=== PATIENT | female | born 1935 | race Caucasian/White ===

== ENCOUNTER 2016-07-26 20:50 | Inpatient (IN) ==
--- NOTE | 2016-07-26 22:58 | PROVIDER DOCUMENTATION ---
HPI-Abdominal Pain/GI Problem - General Chief Complaint: Return/Recheck Stated Complaint: RT SIDE PAIN Time Seen by Provider: 07/26/16 22:45 Source: patient, family Allergies/Adverse Reactions: Patient Allergies Allergy/AdvReac Type Severity Reaction Status Date / Time Penicillins Allergy Intermediate RASH Verified 01/06/16 16:16 aspirin AdvReac Severe DIARRHEA Verified 01/06/16 16:16 Home Medications: Home Medication List Medication Instructions Recorded Confirmed Last Taken Type Metoprolol Succinate E.r. [Toprol 25 mg PO DAILY 05/28/13 07/26/16 07/26/16 07: 00 History Xl] 25 MG Ticagrelor [Brilinta] 90 mg PO BID 07/26/15 07/26/16 07/26/16 07:00 History 90 MG Hydrocodone/APAP 7.5 mg/325 mg 1 each PO Q4H PRN PRN #20 tablet 08/13/1507/26/16 07:00 Rx [[place]-7.5] 1 EACH Acyclovir 800 mg PO DAILY 07/26/16 07/26/16 07/26/16 07:00 History 800 MG Aspirin [Aspirin EC] 81 mg PO DAILY 07/26/16 07/26/16 07/26/16 07:00 History 81 MG Ciprofloxacin HCl [Cipro] 500 mg PO BID #14 tablet 07/26/16 Unknown Rx Cyanocobalamin/Cobamamide [B12 1 each SL DAILY 07/26/16 07/26/16 07/26/16 07:00 History 5,000 Mcg Microlozenge] 1 EACH Eltrombopag Olamine [Promacta] 50 mg PO DAILY 07/26/16 07/26/16 07/26/16 07:00 History 50 MG Iron 18 mg PO DAILY 07/26/16 07/26/16 07/26/16 07:00 History 18 MG Losartan [Cozaar] 50 mg PO DAILY 07/26/16 07/26/16 07/26/16 07:00 History 50 MG Metoclopramide [Reglan] 5 mg PO TID AC 07/26/16 07/26/16 07/26/16 07:00 History 5 MG Metronidazole 500 mg PO TID #21 tablet 07/26/16 Unknown Rx Omeprazole 40 mg PO DAILY 0507/26/16 07/26/16 07:00 History 40 MG Promethazine [Phenergan] 25 mg PO Q6H PRN PRN 07/26/16 07/26/16 07/26/16 07:00 History 25 MG Temazepam 15 mg PO DAILY 07/26/16 07/26/16 07/26/16 07:00 History 15 MG - History of Present Illness-ABD Nature of Presenting Problems: 80 yof was seen here earlier in the ED. Pt was discharged by Dr. Hart with Diagnosis of Colitis. Pt has a history of colorectal cancer and recieves cheom on Tuesday through every 2 weeks. Chemo was finished that past . Pain started on Tuesday. This is common for patient to have pain after chemo, but according to patient and family this was worse than usual and the pain was not able to be controlled. Once patient got home patient tried the pain medication prescribed to her with no relief. Pt came back to the ED looking for pain relief and to be admitted to control her pain. Abdominal Pain Onset Location: reports: RLQ Pain Radiation: reports: no radiation Quality of Pain: reports: sharp Severity in ED: reports: severe Onset/Duration: reports: 3 days ago Timing: reports: still present, gone now (Once patient got in ED treatment room her pain medication finally started to work and patient started to get some relief.), getting worse Activities at Onset: reports: none Exposure to sick contacts?: No Modifying Factors: improves with: analgesics Bruising or Bleeding Gums?: No Similar Symptoms Previously?: No Recently seen or treated by another doctor?: No Review of Systems - Adult - REVIEW OF SYSTEMS - ADULT Constitutional: reports: see HPI Eyes: reports: no symptoms reported Ears, Nose, Mouth & Throat: reports: no symptoms reported Cardiovascular: reports: no symptoms reported Respiratory: reports: no symptoms reported Gastrointestinal: reports: see HPI, abdominal pain Genitourinary: reports: no symptoms reported Musculoskeletal: reports: no symptoms reported Integumentary: reports: no symptoms reported Neurological: reports: no symptoms reported All Other Systems: Reviewed and Negative Past History - Adult - PAST MEDICAL HISTORY-ADULT Review of Records: reports: Old Records Reviewed, Nursing Assessment Review, Medications Reviewed, Social history reviewed & non-contributory. Major Childhood Illnesses: reports: denies history Cardiovascular: reports: CAD, HTN, [place] Respiratory: reports: COPD Gastrointestinal: reports: cancer (Colon) Endocrine/Immune: reports: thyroid disorder Other Conditions: reports: other cancer (skin) - PRIOR SURGERIES/PROCEDURES Surgical/Procedure History: reports: appendectomy, cholecystectomy, cardiac stent, hysterectomy, tonsillectomy - PRIOR HOSPITALIZATIONS Prior Hospitalizations: reports: none - IMMUNIZATION STATUS Childhood Immunizations: See Nurse Assessment Flu Vaccine: See Nurse Assessment - FAMILY HISTORY Family History: reviewed, not pertinent Physical Exam-General - PHYSICAL EXAM-ADULT Initial Vital Signs Reviewed: Yes - CONSTITUTIONAL General Appearance: alert, no apparent distress - EYES Eyes: PERRL/EOMI, pink conjunctivae - HEAD, EARS, NOSE, MOUTH & THROAT HENMT: normocephalic/atraumatic, moist mucous membranes, normal ENT inspection, TMs normal, pharynx normal - NECK Neck: non-tender, full range of motion, supple, normal inspection - RESPIRATORY Respiratory: chest non-tender, lungs clear, normal breath sounds, no pleuratic chest pain, no respiratory distress, no accessory muscle use - CARDIOVASCULAR Cardiovascular: normal peripheral pulses, regular rate, rhythm, no edema, no gallop, no JVD, no murmur - GASTROINTESTINAL (ABDOMEN) Abdominal Exam: normal bowel sounds, soft, no organomegaly, no pulsatile mass, tenderness (RLQ) - LYMPHATIC Lymphatic: no adenopathy - MUSCULOSKELETAL Back Exam: normal inspection, no CVA tenderness, no vertebral tenderness Extremity: normal range of motion, non-tender, normal gait, normal inspection, no pedal edema, no calf tenderness, normal capillary refill, pelvis stable - SKIN Integumentary: normal color, normal turgor, warm/dry - NEUROLOGIC Neurologic: grossly normal - PSYCHIATRIC Psych/Mental Status: oriented x 3 Progress - PLAN OF CARE/RESULTS Progress/Plan/Lab Results: Vital Signs - 8 hr 07/26/16 20:58 Temperature 97.8 F Pulse Rate 74 Respiratory Rate 20 Blood Pressure 117/67 O2 Sat by Pulse Oximetry 92 L Orders Category Date Time Status OK to use Port-A-Cath ORDERED Care 07/26/16 22:52 Ordered - CONSULTS/PCP/HOSPITALIST Notification #1 *Consult/PCP/Hospitalist*: [place] Time Discussed: 22:58 Consult Disposition: Will see in ED, Admit Departure - Departure Time of Disposition Decision: 22:58 DIAGNOSIS: Colitis, Colorectal cancer Abdominal pain Qualifiers: Abdominal location: right lower quadrant Qualified Code(s): R10.31 - Right lower quadrant pain Disposition: ADMITTED INPATIENT 09 Certified Medical Emergency: Emergent Condition: Stable Referrals and Follow-Ups: Jarocho Gagnon MD [Primary Care Provider] - - Critical Care Note This patient required my direct & personal management of CC.: No Attestation - Physician/ DEREK Attestation Patient care was provided by Advanced Practice Provider:: Yes Advanced Practice Provider:: Ron Gaona Advanced Practice Provider documentation review:: The Mid-level provider documentation, treatment plan and medical decision making was reviewed by the physician who agrees with all treatment and medical decision making by the MLP.
[2016-07-26] MEDS ORDERED: NS 1,000 ML IV ONE (23:37)
[2016-07-27] MEDS: LEVAQUIN 750 MG/D5W 750 MG/150 ML IVPB IV SCH ×2 (01:25→23:49)
[2016-07-27 01:32] LABS: INR 1.1; PROTIME 11.6 Seconds (9.2-11.7); PTT 25.9 Seconds (22.0-36.0)
[2016-07-27] MEDS ORDERED: TYLENOL PO PRN (02:35)
[2016-07-27] MEDS: FLAGYL 500 MG/NS 500 MG/100 ML IVPB IV SCH ×4 (03:35→21:14)
[2016-07-27] MEDS: ZOFRAN IV PRN ×2 (03:35→13:25)
[2016-07-27] MEDS: MORPHINE IV PRN ×2 (03:51→21:13)
--- NOTE | 2016-07-27 04:24 | HISTORY AND PHYSICAL ---
PRIMARY CARE PROVIDER: Dr. Jarocho Gagnon. ONCOLOGIST: Dr. Chele Gilbert. LENS EXAMINER: Dr. Chandana Redding. CHIEF COMPLAINT: Right upper quadrant pain. HISTORY OF PRESENT ILLNESS: Ms. Alcazar is a 80-year-old female with a past medical history most notable for colon cancer status post resection, currently receiving chemotherapy with Dr. Gilbert, COPD, coronary artery disease status post [place] and stenting in March 2015, and hyperlipidemia. She presented to the ER earlier this afternoon with complaints of right upper quadrant pain x3 days. She also reports nausea, but denies any vomiting or diarrhea. The patient states that her last bowel movement was this morning, was dark in color. She denies any hematochezia, but has reported that her stools have been dark. she denies any over the counter use of pepto-bismol but does take iron supplements. She denies any fever, body aches, or chills. The patient also reports some decreased appetite, with her family stating that she has only eaten a few bites of food in the past 2 days. The patient did receive her most recent dose of chemotherapy on , approximately 4 days ago. She was evaluated in the ER earlier this afternoon. A CT of the abdomen and pelvis was performed, which showed findings of apparent localized colitis in the area of the hepatic flexure. Also noted was increased biliary dilation of uncertain etiology, and mesenteric adenopathy. The patient was given a prescription for Flagyl, as well as Cipro, and was discharged home to follow up with her primary care doctor and Dr. Gilbert. Though, once the patient returned home, her abdominal pain became worse, and ultimately she and her family did decide to bring her back to the ER for further evaluation and treatment of her pain. She denies any headache, dizziness, lightheadedness, chest pain. The patient does report some shortness of breath, though states this has been ongoing for quite some time due to her COPD disease, though she denies any worsening of this. She denies any cough, dysuria , urinary frequency, pain, numbness, or tingling in the extremities. At this time, we will admit the patient for further care and evaluation of her colitis, as well as some mild fluid volume depletion. REVIEW OF SYSTEMS: A 12-point review of systems was conducted with the patient. All were negative, except for pertinent positives mentioned in the HPI. PAST MEDICAL HISTORY: 1. COPD. 2. Hypertension. 3. Hyperlipidemia. 4. Coronary artery disease, status post [place] and stenting in March 2015, currently followed by Dr. Redding. 5. Colon cancer status post resection, currently receiving chemotherapy with Dr. Gilbert. 6. 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 PAST SURGICAL HISTORY: 1. Cholecystectomy. 2. Hysterectomy. 3. Left carotid endarterectomy. 4. Coronary artery stent placement in March 2015. 5. Appendectomy. 6. Thyroid nodule removal. 7. Partial colon resection. FAMILY HISTORY: Positive for coronary artery disease in her mother and father, as well as a family history of diabetes, CVA, and gastric cancer. SOCIAL HISTORY: Patient currently lives with her , who was at bedside at the time of examination. She is a former smoker who quit smoking approximately 20 years ago. No known history of alcohol or illicit drug use. ALLERGIES: Patient is allergic to penicillin and aspirin, though she does take an 81 mg aspirin daily. Her reported allergy to this is that it gives her diarrhea. HOME MEDICATIONS: We are awaiting the patient's medication list to be updated at this time, though the patient was just recently in the ER earlier this afternoon. The following are the medications that were previously listed on her list: 1. Acyclovir 800 mg p.o. daily. 2. Aspirin 81 mg p.o. daily. 3. Ciprofloxacin 500 mg p.o. b.i.d. 4. Vitamin B12 5000 microlozenges, 1 each sublingual daily. 5. Promacta 50 mg p.o. daily. 6. [place] 7.5 one p.o. q.4 hours p.r.n. for pain. 7. Iron 18 mg p.o. daily. 8. Losartan 50 mg p.o. daily. 9. Reglan 5 mg p.o. t.i.d. before meals. 10. Toprol-XL 25 mg p.o. daily. 11. Flagyl 500 mg p.o. t.i.d. 12. Omeprazole 40 mg p.o. daily. 13. Phenergan 25 mg p.o. q.6 hours p.r.n. for nausea. 14. Temazepam 50 mg p.o. daily. 15. Brilinta 90 mg p.o. b.i.d. Once the patient's medication list is confirmed and updated, we will reconcile her medications and continue to follow. DIAGNOSTIC DATA AND LABORATORY RESULTS: Labs were drawn at 1430 this afternoon. White blood cell count was 5.14, hemoglobin 17.1, hematocrit 51.4, platelet count is 85,000. Sodium is 138, potassium 4.1, chloride 100, bicarbonate 24, BUN 13, creatinine 0.8, glucose 98. Calcium 9.5. Total bilirubin is 1.68, AST 23, ALT 17, alkaline phosphatase is 93, amylase 17 , lipase 17. Urinalysis was obtained via cath, was positive for urobilinogen and trace leukocytes, though was negative for glucose, ketones, blood, nitrites, or bacteria. CT of the abdomen and pelvis showed findings of apparent localized colitis in the area of the hepatic flexure. Also noted was intrahepatic biliary dilation. The distal common bile duct measures almost 9 mm in diameter, compared to a less than 7 on a previous comparison CT. Also noted are some enhancing mesenteric nodes present in the ileocolic region. Pending diagnostic studies at this time are blood cultures, Hemoccult stool, PT , PTT, EKG, and right upper quadrant abdominal ultrasound. PHYSICAL EXAMINATION: VITAL SIGNS: Temperature 97.8 degrees, heart rate 74, respirations 20, blood pressure 117/67, oxygen saturation is 92% room air. GENERAL: Ms. Alcazar is a pleasant 80-year-old elderly female who is resting on the ER stretcher. She was in no acute distress. She was awake, alert, and able to answer all questions appropriately. HEENT: Head is atraumatic, normocephalic. Pupils are equal, round, reactive to light, were 3 mm bilaterally and brisk. Sclerae were white. No apparent jaundice noted. Subconjunctivae were slightly pale. Oral mucosa slightly dry. Oropharynx is clear. NECK: Supple. Trachea midline. CARDIOVASCULAR: Patient has normal S1, S2. No murmurs, gallops, rubs appreciated, with a regular rate and rhythm. PULMONARY: Patient has symmetrical chest expansion bilaterally. Lung sounds are clear to auscultation bilaterally. Full rojas. ABDOMEN: Soft, nondistended. The patient did have tenderness noted in the right upper quadrant upon palpation. Bowel sounds are present in all 4 quadrants, were normoactive. EXTREMITIES: No cyanosis, clubbing, or edema noted. Pulse, motor, and sensory were intact in all extremities as well. Pedal pulses are 3+ bilaterally. INTEGUMENTARY: Patient's skin is pink, warm, dry, and intact. No lesions or sores noted. Skin turgor is diminished. NEUROLOGICAL: Patient is alert, oriented to person, place, time, and situation. Cranial nerves 2- 12 are grossly intact. ASSESSMENT AND PLAN: 1. Colitis. Blood cultures have been ordered. We have placed the patient on Levaquin 750 mg IV q.24 hours, as well as Flagyl 500 mg IV q.6 hours. The patient did report some dark stools. We have ordered a Hemoccult stool for further evaluation of this. We will place the patient on a clear liquid diet, though she will be NPO after midnight for an abdominal ultrasound in the morning. We will continue to follow. 2. Right upper quadrant pain. This could be related to her colitis though, given that the patient's total bilirubin is elevated at 1.68, and CT did show increased biliary dilation. We have placed a right upper quadrant abdominal ultrasound for further evaluation of this, and will continue to follow. We will treat her pain with morphine 2 mg every 3 hours p.r.n. as needed. 3. Colon cancer, status post resection, currently receiving chemotherapy. For this, we will consult Dr. Gilbert and await his evaluation and further recommendations for management. 4. Coronary artery disease status post stent placement. We will continue the patient's aspirin and Brilinta. Will continue to monitor. 5. Hypertension. We will continue her metoprolol and Cozaar. We will continue to monitor. 6. Chronic obstructive pulmonary disease. We will order DuoNeb treatments q.4- 6 hours p.r.n. as needed for wheezing or shortness of breath. 7. Mild fluid volume depletion. This is likely secondary to the patient's reported poor appetite and poor oral intake. We will provide her with gentle fluid resuscitation at 100 mL normal saline per hour, and will continue to follow. 8. The patient will be placed on the medical floor with telemetry. Vital signs will be q.6 hours with strict intake and output. DVT prophylaxis will be provided with SCDs. We have placed a dietitian consult as well for further evaluation of the patient's decreased appetite, as well as some generalized fatigue and weakness. We will also continue the patient' s acyclovir for treatment of her reported herpes infection in the right eye. We will repeat a CBC and CMP in the morning. Further orders and recommendations pending hospital course, diagnostic studies, and physician evaluation. Dictated by ARAVIND Causey for Maranda Locke MD Seen and examined pt and discussed case with BINDING DYER cc: Maranda Locke MD MTDD
[2016-07-27 06:07] LABS: MANUAL DIFF NEEDED? NO
[2016-07-27 06:16] LABS: BASO% 0.3 % (0.0-0.8); EOS# 0.05 X1000 (0.0-0.7); EOS% 1.4 % (0.0-10.0); HEMOGLOBIN 14.2 g/dL (12.0-16.0); IMM GRAN# 0.02 X1000 (0.0-0.04); IMM GRAN% 0.6 % (0.0-0.5); LYMPH# 0.16 X1000 (1.2-3.4); LYMPH% 4.6 % (20.5-51.1); MCH 33.7 PG (27-31); MCHC 33.8 g/dL (33-37); MCV 99.8 FL (81-99); MONO# 0.31 X1000 (0.11-0.59); MONO% 8.9 % (1.7-9.3); MPV 11.4 FL (7.4-10.4); NEUT% 84.2 % (42.2-75.2); PLT 60 X1000 (130-400); RBC 4.21 XMIL (4.2-5.4)
[2016-07-27 06:30] LABS: ALBUMIN 3.1 g/dL (3.5-5.0); CALCIUM 8.5 mg/dL (8.8-10.2); TOTAL BILIRUBIN 2.92 mg/dL (0.20-1.00); TOTAL PROTEIN 5.1 g/dL (6.3-8.3)
[2016-07-27] MEDS ORDERED: SODIUM CHLORIDE 0.9% INJ SCH (07:30)
--- NOTE | 2016-07-27 08:14 | Diag Imaging Result Document ---
PROCEDURE NAME: US GB < RUQ (LIMITED) - 07/27/2016 RIGHT UPPER QUADRANT ULTRASOUND: FINDINGS: No aneurysmal dilatation to the abdominal aorta. The gallbladder has been removed. The common bile duct measures 6 mm. Normal right kidney. No hydronephrosis. Normal pancreas. No focal hepatic abnormality. The inferior vena cava is poorly seen. No ascites in the right upper quadrant. IMPRESSION: Cholecystectomy, otherwise negative exam.
[2016-07-27] MEDS: PROTONIX IV SCH (08:30)
[2016-07-27] MEDS ORDERED: DUONEB (A & A) INH PRN (08:40)
[2016-07-27] MEDS ORDERED: ELTROMBOPAG OLAMINE 50 MG PO SCH (09:00)
[2016-07-27] MEDS ORDERED: COZAAR PO SCH (09:00)
[2016-07-27] MEDS: ZOVIRAX PO SCH (09:28)
[2016-07-27] MEDS: VITAMIN B-12 SL SCH (09:28)
[2016-07-27] MEDS: BRILINTA PO SCH ×2 (09:35→21:14)
[2016-07-27] MEDS: FERROUS SULFATE PO SCH (09:35)
[2016-07-27] MEDS: REGLAN PO SCH ×2 (11:00→16:01)
[2016-07-27] MEDS: TOPROL XL PO SCH (14:09)
[2016-07-27] MEDS: ZOFRAN IV SCH ×2 (14:10→21:13)
--- NOTE | 2016-07-27 16:22 | PROGRESS NOTE ---
DATE: 07/27/2016 SUBJECTIVE: Patient reports feeling better. Less diarrhea although she still has it. No fever or chills or abdominal pain. OBJECTIVE: Vital Signs: Temperature 97.5 degrees, heart rate 76, respiratory rate 18, blood pressure 129/50, O2 saturation 94% 2 L nasal cannula. General Examination: This is a 80-year- old chronically ill-looking, female lying in bed, in no acute distress. HEENT: Head is normocephalic, atraumatic. Anicteric sclerae and pale conjunctivae. Mucous membranes moist. Neck: Supple. No JVD noted. No carotid bruits. No lymphadenopathy. No thyromegaly. Cardiovascular: S1, S2 heard. No murmurs, gallops, or rubs. Regular rate and rhythm. Respiratory: Clear bilaterally to auscultation. No work of breathing or using accessory muscles. Abdomen: Soft, nondistended. A little bit of tenderness noted in the right upper quadrant. Extremities: No clubbing, cyanosis, or edema. Peripheral pulses present in both legs. Neurological: Patient is alert and oriented x3. Moves 4 extremities. LABORATORY DATA: White cell count 3.5, hemoglobin 14.2, hematocrit 42.0, platelets 60,000. BMP unremarkable. ASSESSMENT/PLAN: 1. Infectious colitis. Patient is on Levaquin and Zosyn. The patient reports that she is having less diarrhea but considering history of colon cancer and use of antibiotics we preferred to check C. difficile stool studies to make sure that the patient does not have that infection. 2. Right upper quadrant pain. This is definitely better in comparing with yesterday and the abdominal ultrasound did not show anything abnormal. 3. Colon cancer. Currently receiving chemotherapy. Dr. Gilbert has been consulted and we will follow recommendations. 4. Coronary artery disease. We will continue with Brilinta and aspirin. 5. Hypertension. We have held Cozaar because the blood pressure is between 100 and 120 on metoprolol. We will continue with that unless blood pressure drops 90s and below. We will continue checking vitals every 6 hours. 6. COPD. Patient is on p.r.n. breathing treatments. The patient is not on any exacerbation. 7. Mild fluid volume depletion. Patient is on normal saline. We will continue with the same management. The patient clinically is doing better. 8. Right eye herpetic infection. We will continue with acyclovir. cc: Mark Britton MD
--- NOTE | 2016-07-27 17:14 | CONSULTATION ---
DATE OF CONSULTATION: 07/27/2016 REASON FOR CONSULT: The patient is known to us with stage IV moderately differentiated metastatic colon cancer currently on 5-FU and Avastin. 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 HISTORY OF PRESENT ILLNESS: Ms. 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 She received her last most recent chemotherapy on July 20. She received full doses of 5-FU with Avastin. She also has known ITP on Promacta 50 mg daily. Yesterday, she came into the emergency room with some severe right upper quadrant abdominal pain, with nausea and dry heaves. She did not have any diarrhea. A CT abdomen, pelvis as well as blood cultures were performed. The CT showed localized colitis in the area of the hepatic flexure. She was given prescriptions for Levaquin and Flagyl and ultimately sent home from the ER. The patient's pain got significantly worse and came back into the ER the same day with worsening abdominal pain. She denies any fevers, chills. Her appetite is decreased. She continues to have the right upper quadrant abdominal pain. An abdominal ultrasound was obtained which showed cholecystectomy with no acute processes. Her white count is 3.5, hemoglobin 14.2, hematocrit 42, platelet count 60,000. Her total bilirubin is 2.92, AST is 48. Her blood cultures are pending. She is currently on Flagyl and Levaquin. She was admitted for further evaluation and treatment. REVIEW OF SYSTEMS: Are negative unless indicated in the HPI. PAST MEDICAL HISTORY: 1. Stage IV metastatic colon cancer on chemotherapy. 2. ITP on Promacta. 3. Macrocytic anemia. 4. Systemic hypertension. 5. Cardiovascular disease, coronary artery disease status post [place] and stenting in March 2015. SOCIAL HISTORY: Patient has a supportive family. She denies alcohol, illicit drug or tobacco use. ALLERGIES: She is allergic to penicillin and aspirin but she continues to take 81 mg aspirin daily which she tolerates well. HOME MEDICATIONS: Brilinta, temazepam, Phenergan, acyclovir, aspirin, Cipro, B12, Promacta 50 mg a day, [place], iron, losartan, Reglan. PHYSICAL EXAMINATION: Vital Signs: Stable. Constitutional: This is a female who appears frail, chronically ill. HEENT: Head is normocephalic, atraumatic. Mucous membranes are dry. Neck: Supple. Trachea midline. Cardiovascular: S1-S2 audible to auscultation with no heaves, lifts, thrills. Pulmonary: Breath sounds clear, respirations unlabored. Skin: No petechiae, no rash is noted. Gastrointestinal: Abdomen lightly tender right upper quadrant, nondistended. Positive bowel sounds in all 4 quadrants. Neurologic: Alert and orient x3. Musculoskeletal: No bony abnormality. DIAGNOSTIC DATA: The CT abdomen, pelvis again showed localized colitis in the hepatic flexure area with biliary dilation and some mesenteric adenopathy. Abdominal ultrasound showed no acute processes. Total bilirubin was 2.92. White count 3.5, hemoglobin 14.2, hematocrit 42, platelet count 60,000. Sodium 136, potassium 4.0, creatinine 0.9. ASSESSMENT AND PLAN.: 1. Colitis. The patient currently on Levaquin and Flagyl. We will obtain GI consult to follow and further manage. She currently has blood cultures pending. 2. Stage IV metastatic colon cancer. Last chemotherapy was on the 2nd. Her scan has been stable. 3. Idiopathic thrombocytopenia. Would continue with Promacta 50 mg p.o. daily. 4. Chronic obstructive pulmonary disease on duo nebs on a p.r.n. basis. 5. DVT prophylaxis. SCD's 6. Nausea/Vomiting. Zofran and Phenergan. Dictated by ARAVIND Mac for Chele Gilbert MD cc: ARAVIND Mac MD [facility]
[2016-07-27] MEDS: NS 1,000 ML IV SCH (18:23)
[2016-07-27] MEDS: RESTORIL PO SCH (21:13)
[2016-07-28] MEDS: FLAGYL 500 MG/NS 500 MG/100 ML IVPB IV SCH ×4 (03:07→21:25)
[2016-07-28] MEDS: ZOFRAN IV SCH ×4 (03:07→21:25)
[2016-07-28 06:10] LABS: MANUAL DIFF NEEDED? NO
[2016-07-28 06:21] LABS: BASO% 0.7 % (0.0-0.8); EOS# 0.26 X1000 (0.0-0.7); EOS% 9.4 % (0.0-10.0); HEMATOCRIT 39.2 % (37.0-47.0); HEMOGLOBIN 13.1 g/dL (12.0-16.0); LYMPH# 0.45 X1000 (1.2-3.4); LYMPH% 16.3 % (20.5-51.1); MCH 33.1 PG (27-31); MCHC 33.4 g/dL (33-37); MONO# 0.49 X1000 (0.11-0.59); MONO% 17.8 % (1.7-9.3); MPV 11.4 FL (7.4-10.4); NEUT% 55.8 % (42.2-75.2); PLT 59 X1000 (130-400); RBC 3.96 XMIL (4.2-5.4)
[2016-07-28 06:26] LABS: AGAP 10; ALBUMIN 2.9 g/dL (3.5-5.0); ALKALINE PHOSPHATASE 89 U/L (32-104); BUN 9 mg/dL (8-22); CALCIUM 8.4 mg/dL (8.8-10.2); CHLORIDE 108 mmol/L (98-107); COSMO 278; GOT 39 U/L (10-30); GPT 29 U/L (10-36); POTASSIUM 3.9 mmol/L (3.5-5.1); SODIUM 140 mmol/L (136-145); TCO2 22 mmol/L (25-35); TOTAL BILIRUBIN 2.19 mg/dL (0.20-1.00); TOTAL PROTEIN 4.9 g/dL (6.3-8.3)
[2016-07-28] MEDS: REGLAN PO SCH ×3 (07:15→16:40)
[2016-07-28] MEDS: PROTONIX IV SCH (09:42)
[2016-07-28] MEDS: FERROUS SULFATE PO SCH (09:42)
[2016-07-28] MEDS: TOPROL XL PO SCH (09:42)
[2016-07-28] MEDS: VITAMIN B-12 SL SCH (09:43)
[2016-07-28] MEDS: BRILINTA PO SCH ×2 (09:43→21:25)
[2016-07-28] MEDS: ZOVIRAX PO SCH (09:44)
[2016-07-28] MEDS: NS 1,000 ML IV SCH ×2 (09:45→10:51)
--- NOTE | 2016-07-28 14:44 | PROGRESS NOTE ---
DATE: 07/28/2016 SUBJECTIVE: Ms. Caryn Alcazar is a 80-year-old, female, currently sitting in a chair getting ready to eat her lunch. She has no complaints. She states she feels much better. OBJECTIVE: Vital Signs: Temperature 98.2 degrees, heart rate 78, respiratory rate 18, blood pressure 133/88, O2 saturation 96% on room air. General: Ms. Alcazar is a 80-year-old, female, in no acute distress. Able to answer questions appropriately. Cardiovascular: S1, S2. Regular rate and rhythm. No rubs, gallops, murmurs. Pulmonary: Clear to auscultation. Bilateral breath sounds. No accessory muscle use or work of breathing noted. GI: Soft, nontender, nondistended. Positive bowel sounds x4. Extremities: No edema noted. +2 dorsalis and radial pulses. LABORATORY DATA: White blood cells 2000, hemoglobin 13, hematocrit 39, platelet count 59,000. Sodium 140, potassium 3.9. BUN 9, creatinine 0.7, glucose 100. Calcium 8.4, total bilirubin 2.19. AST 39, ALT 29, albumin 2.9. IMAGING: Abdominal ultrasound. Cholecystectomy, otherwise, negative exam. ASSESSMENT AND PLAN: 1. Colitis. Blood cultures are negative to date. The patient is still on Levaquin and Flagyl. There were reported dark stools but Hemoccult stool negative. Her diet has been advanced to GI soft. No acute findings on the abdominal ultrasound. White blood cells are stable at 2000. 2. Right upper quadrant pain. She says the pain has subsided. 3. History of colon cancer, status post resection. Dr. Gilbert is following. 4. Idiopathic thrombocytopenia is stable. 5. Hyperbilirubinemia. GI has been consulted. 6. Hypertension. Continue known metoprolol and Cozaar. 7. Chronic obstructive pulmonary disease. No exacerbation noted. 8. Mild fluid volume depletion is resolved after IV fluid hydration. 9. Deep venous thrombosis prophylaxis, sequential compression devices. 10. Poor appetite. Geological Technical Officer has been consulted. 11. Right eye herpes infection continue acyclovir. Dictated by ARAVIND Phillips for Mark Britton MD cc: ARAVIND Phillips MD
[2016-07-28] MEDS ORDERED: MISC. PHARMACY COMMUNICATION SCH (16:30)
[2016-07-28] MEDS: MORPHINE IV PRN (21:24)
[2016-07-28] MEDS: RESTORIL PO SCH (21:25)
--- NOTE | 2016-07-28 21:33 | CONSULTATION ---
DATE OF CONSULTATION: 07/28/2016 REFERRING PHYSICIAN: Mark Britton MD ONCOLOGIST: Chele Gilbert MD PRIMARY CARE DOCTOR: Jarocho Gagnon MD REASON FOR CONSULTATION: Elevated liver enzymes. HISTORY OF PRESENT ILLNESS: Ms. Alcazar is a 80-year-old female who was admitted on 07/26/2016 with symptoms of right upper quadrant, right lower quadrant pain. Initially she came to the ER last and at that time she was found to have colitis and discharged on antibiotics, but the same day she continued to have worsening abdominal pain, and came to the ER for further evaluation. This time, she was admitted and during the admission she was underwent a CT scan which showed evidence of localized colitis in the area of hepatic flexure. Also there was evidence of increased biliary ductal dilation of uncertain etiology and mesenteric adenopathy. The patient has a history of prior cholecystectomy and many years ago she also has a history of known stage IV metastatic colon cancer, being treated by Dr. Gilbert. During this admission, she was also noted to have elevated liver enzymes, slightly high bilirubin and mildly elevated AST. Gastroenterology was consulted for colitis and elevated liver enzymes. The patient denies any known history of metastatic disease in the liver. We will get records from Dr. Gilbert about the previous cancer and previous lab work. The patient denies any use of herbal medications. PAST MEDICAL HISTORY: 1. COPD. 2. Hypertension. 3. Hyperlipidemia. 4. Coronary artery disease status post myocardial infarction. a. 04/05, followed Dr. Redding. 5. Colon cancer status post resection, currently receiving care by Dr. Gilbert. 6. Reported herpes infection in the right eye, receiving acyclovir. PAST SURGICAL HISTORY: Cholecystectomy. Hysterectomy. Left carotid endarterectomy. Coronary artery stent placement 04/05. Appendectomy. Thyroid nodule removal. Partial colon resection. FAMILY HISTORY: Coronary artery disease in her mother and father and history of diabetes, CVA, and gastric cancer. SOCIAL HISTORY: She is and lives with her . is present at bedside. Her is very supportive. She is a former smoker. Quit smoking about 20 years ago. No history of alcohol or drug use. ALLERGIES: Penicillin. Aspirin. She does take aspirin daily and according to her it gives her diarrhea. MEDICATIONS IN THE HOSPITAL: Tylenol, acyclovir, albuterol/ipratropium, cyanocobalamin, ferrous sulfate, metronidazole, Levaquin, Reglan, metoprolol, morphine, IV normal saline , Zofran, Protonix, Restoril, Brilinta,IV fluids 100 mL/hour normal saline. She is currently on GI soft diet and Ensure 3 times a day. REVIEW OF SYSTEMS: She denies any current fevers, rigors, or chills. Denies any chest pain or shortness of breath. Denies any vomiting or passing blood in the stools. Denies any black stools. Does complain of arthritis. Denies any nausea complaints. PHYSICAL EXAMINATION: Vital signs: Temperature 98.2, pulse rate of 81, respiratory rate 18, blood pressure 154/86, saturating 92% on room air. Body weight of 114 pounds 3 ounces. BMI 23.3 kg/m2. General: Moderately build, moderately nourished, lying in bed, in no acute distress. HEENT: No pallor. Mild icterus. Pupils equal, react to light. Neck: Supple. Abdomen: Soft, nontender, nondistended. Bowel sounds are present. No guarding. No rebound. Extremities: No cyanosis, clubbing. Neurologic: She is alert, awake, oriented. LABORATORY: Hemoglobin and hematocrit is 13.1 and 39.2, white count 2.76, platelet count of 59,000, MCV of 99, INR 1.1, PT of 11.6, PTT of 25.9. Sodium 140, potassium 3.9 , chloride 100, bicarb 20, anion gap 10, BUN of 9, creatinine 0.9, glucose of 100, calcium is 8.4, total bilirubin is 2.19, AST 39, ALT 29, alkaline phosphatase 89, total protein 4.9, albumin of 2.9. Platelets prior to this admission in 12/2015, platelet count was 171,000 so this is a recent drop prior to this admission and in 01/2016, bilirubin was 1.1. Prior to that, last 07/2015 , bilirubin was normal. Looking at the liver enzymes, her liver enzymes were normal three days ago on 07/26/2016. IMPRESSION AND PLAN: 1. Localized colitis in the area of hepatic flexure seen on CT scan. 2. Mildly elevated liver enzymes and increased biliary dilation once her etiology mesenteric adenopathy was noted on CT scan. 3. Some fluid and stool throughout the colon with apparent mucosal thickening and pericolonic inflammatory change around the right colon was noted. No evidence of any small bowel dilation noted on imaging. There is some atherosclerotic calcification in the aorta and its branches including the superior mesenteric artery and celiac arteries. 4. Metastatic colon cancer, on chemotherapy with Dr. Gilbert. Currently receiving 5FU and Avastin and ITP on Promacta. RECOMMENDATIONS: 1. We will check the stool studies to rule out infectious etiologies, check for culture, ova and parasites. Stool Clostridium difficile antigen and toxin negative so far. Her stool for Hemoccult is also negative. 2. We will continue on Levaquin and Flagyl for now for a total of 7 days. I will start her on Activia yogurt twice daily and also Culturelle twice daily. 3. Regarding her mildly elevated liver enzymes, we will follow the liver enzymes. We will obtain a magnetic resonance cholangiopancreatography to evaluate for any kind of biliary stricture versus any kind of external compression from lymphadenopathy. 4. If above workup is unrevealing, then she may need a CT-guided liver biopsy to evaluate for any kind of metastatic disease. Drug-induced liver injury is also in differential. 5. We will continue patient on gastrointestinal prophylaxis. The patient has low platelets and she has been on Brilinta. So we need to be extra careful for gastrointestinal bleeding and other related bleeding risks. The above plan of care discussed with the patient and family. cc: MD Chele Rouse MD Cesar Garcia-Rodriguez, MD Edwin K. Matthews, MD MTDD
[2016-07-29] MEDS: LEVAQUIN 750 MG/D5W 750 MG/150 ML IVPB IV SCH (00:20)
[2016-07-29] MEDS: ZOFRAN IV SCH ×2 (02:43→08:29)
[2016-07-29] MEDS: FLAGYL 500 MG/NS 500 MG/100 ML IVPB IV SCH ×2 (02:44→08:29)
[2016-07-29] MEDS: NS 1,000 ML IV SCH (04:39)
[2016-07-29] MEDS: REGLAN PO SCH ×2 (06:33→11:42)
[2016-07-29 07:35] LABS: BASO% 0.9 % (0.0-0.8); EOS# 0.36 X1000 (0.0-0.7); EOS% 10.6 % (0.0-10.0); HEMATOCRIT 39.9 % (37.0-47.0); HEMOGLOBIN 13.4 g/dL (12.0-16.0); IMM GRAN# 0.03 X1000 (0.0-0.04); IMM GRAN% 0.9 % (0.0-0.5); LYMPH# 0.72 X1000 (1.2-3.4); LYMPH% 21.2 % (20.5-51.1); MANUAL DIFF NEEDED? YES; MCH 33.3 PG (27-31); MCHC 33.6 g/dL (33-37); MCV 99.3 FL (81-99); MONO# 0.78 X1000 (0.11-0.59); MPV 10.4 FL (7.4-10.4); NEUT% 43.4 % (42.2-75.2); PLT 53 X1000 (130-400); RBC 4.02 XMIL (4.2-5.4)
[2016-07-29 07:50] LABS: ALBUMIN 3.1 g/dL (3.5-5.0); DIRECT BILIRUBIN 0.4 mg/dL (0.00-0.20); TOTAL BILIRUBIN 0.76 mg/dL (0.20-1.00); TOTAL PROTEIN 4.7 g/dL (6.3-8.3)
[2016-07-29 08:05] VITALS: BP 158/96
[2016-07-29 08:16] LABS: AGAP 9; ALBUMIN 2.9 g/dL (3.5-5.0); ALKALINE PHOSPHATASE 83 U/L (32-104); BUN 6 mg/dL (8-22); CALCIUM 8.3 mg/dL (8.8-10.2); CHLORIDE 108 mmol/L (98-107); COSMO 275; GOT 25 U/L (10-30); GPT 22 U/L (10-36); POTASSIUM 3.2 mmol/L (3.5-5.1); SODIUM 139 mmol/L (136-145); TCO2 22 mmol/L (25-35); TOTAL BILIRUBIN 0.74 mg/dL (0.20-1.00); TOTAL PROTEIN 4.9 g/dL (6.3-8.3)
[2016-07-29] MEDS: TOPROL XL PO SCH (08:29)
[2016-07-29] MEDS: BRILINTA PO SCH (08:29)
[2016-07-29] MEDS: FERROUS SULFATE PO SCH (08:29)
[2016-07-29] MEDS: VITAMIN B-12 SL SCH (08:29)
[2016-07-29] MEDS: ZOVIRAX PO SCH (08:29)
[2016-07-29] MEDS: PROTONIX IV SCH (08:34)
[2016-07-29 08:47] LABS: EOS 8 % (1-10); LYMPHS 20 % (21-51); MONO 24 % (1-9)
[2016-07-29 11:00] LABS: HEPATITIS PROFILE ACUTE SEE COMMENTS
[2016-07-29] MEDS ORDERED: CULTURELLE PO SCH (12:00)
--- NOTE | 2016-07-29 12:19 | PROGRESS NOTE ---
DATE: 07/29/2016 REFERRING PHYSICIAN: Dr. Pacheco. SUBJECTIVE: Patient is currently resting in bed. Her is at bedside. She denies any fevers, rigors, chills, nausea, vomiting. She was able to eat a good breakfast this morning. She had 1 bowel movement today. She has not been endorsing blood in the stools. MRI of the pelvis was done this morning. The results are currently pending. Hepatitis panel came back negative. OBJECTIVE: Vital signs: Temperature of 97.7 degrees, pulse rate of 70, respiratory rate 14, blood pressure 158/96, satting 95% on room air. General Appearance: Moderately nourished, lying in bed in no acute distress. HEENT: Mild pallor, no icterus. Neck: Supple. Abdomen: Soft, nontender, nondistended. Bowel sounds have no guarding, no rebound. Extremities: No cyanosis, clubbing. A little petechiae noted in the upper and some old bruising noted in upper extremities. Neurologic: Neuro-gonzalez she is alert, awake, oriented. LABS: Hemoglobin and hematocrit is 13.4 and 39.9, white count of 3.3, platelet count of 53, MCV of 99.3. INR 1.1. Sodium 139, potassium 3.2, chloride 100, bicarbonate 20, anion gap 9, BUN of 6, creatinine 0.7, glucose of 205, calcium is 8.3, total bilirubin is 0.74. AST 25, ALT 22, alkaline phosphatase is 83, total protein is 4.9, and albumin of 2.9. Acute hepatitis panel is nonreactive. IMPRESSION AND PLAN: 1. Focal colitis hepatic flexure and the stool study is negative for Clostridium difficile toxin antigen. A few white cells noted in the stool and the stool culture is negative. Unclear etiology. Patient continuing on Levaquin and Flagyl for a total of 7 days. 2. Continuing on probiotics-like activity twice daily and we will start on Culturelle twice daily. 3. Liver enzymes have now normalized. We will follow MRI of the liver. 4. Thrombocytopenia. The patient is on Brilinta which can increase her risk of bleeding. I think this needs to be discussed with the hematology team and cardiology about the necessity of using Brilinta as the patient is already thrombocytopenic. 5. Gastrointestinal prophylaxis with proton pump inhibitors. 6. Anemia. Continue iron once daily. 7. The above plan is discussed with the patient, family and all questions were answered. cc: MD Chele Rouse MD Edwin K. Matthews, MD Cesar Garcia-Rodriguez, MD
--- NOTE | 2016-07-29 13:12 | Diag Imaging Result Document ---
PROCEDURE NAME: MRI ABDOMEN W/WO CONTRAST - 07/28/2016 MRI OF THE ABDOMEN WITH AND WITHOUT GADOLINIUM: FINDINGS: There is a possibly worsened atelectasis in the right lower lobe than on the previous CT scan of 07/26/2016. The common bile duct in the pancreatic head measures less than 6 mm. There is no apparent intrahepatic biliary dilatation on the current study, unlike the previous CT scan. There is no identifiable mass. The possibility of a recently passed common bile duct stone cannot be excluded. Otherwise, there is no appreciable change since the previous CT exam. IMPRESSION: 1. Improved biliary dilatation. 2. Possibly worsened right lower lobe atelectasis.
--- NOTE | 2016-07-30 06:01 | DISCHARGE SUMMARY ---
ADMISSION DATE: 07/26/2016 DISCHARGE DATE: 07/29/2016 CONSULTATIONS: Dr. Mccarty with GI. PERTINENT PROCEDURES: 1. Abdominal ultrasound showed cholecystectomy. Otherwise negative. 2. Abdominal MRI showed improvement in biliary dilatation and possibly worsening right lower lobe atelectasis. DISCHARGE DIAGNOSES: 1. Focal colitis hepatic flexure. Stool study negative for C diff toxin antigen. Few white cells noted. Stool culture negative. She will continue with Levaquin and Flagyl for 7 days as well as probiotics twice daily. 2. Transaminitis normal, now normalized. 3. Thrombocytopenia. The patient is on Brilinta. Per GI, she needs to have discussion with hematology as well as Cardiology about the necessity of using Brilinta. 4. GERD. Continue PPI. 5. Anemia. Continue iron daily. 6. Colon cancer status post resection followed by Dr. Gilbert. 7. Hypertension. Continue home medications. 8. Chronic obstructive pulmonary disease without exacerbation. 9. Mild fluid volume depletion, resolved. 10. Poor appetite. Nutrition to see the patient. 11. Right eye herpes infection. Continue acyclovir. HOSPITAL COURSE: Ms. Alcazar is a 80-year-old female with a past medical history for colon cancer status post resection, currently receiving chemotherapy with Dr. Gilbert, COPD, coronary artery disease, status post ME and stenting in March of 2015. Hyperlipidemia. Patient reported to the ED with complaints of right upper quadrant pain for 3 days. She reported nausea but no vomiting or diarrhea. She reported dark stools. She denied the use of Pepto-Bismol but does take iron supplements. In the ED, the CT of the abdomen and pelvis was performed that showed findings of apparent localized colitis in the area of the hepatic flexure and increased biliary dilatation. Initially in the ED, she was discharged with Flagyl and Cipro. Follow up with her primary care doctor and Dr. Gilbert but when she returned home, her abdominal pain became worse so she was brought back to the ED and admitted. The patient was started on IV antibiotics with Cipro and Flagyl. She was made n.p.o. and a GI consult and started on IV fluids as well as pain management. Dr. Gilbert was also consulted for her idiopathic thrombocytopenia. They wanted to continue on Promacta daily. Dr. Mccarty did an abdominal MRI that showed improved biliary dilatation and possible worsening right lower lobe atelectasis. The patient will continue with Levaquin and Flagyl for 7 days as well as started on probiotic. Her enzymes have normalized. He does want the patient to speak with Cardiology as well as Hematology about her Brilinta and her increased risk of bleeding with her low platelet count. The patient has been released for discharge today. VITAL SIGNS: Temperature is 97.7 degrees, heart rate 73, respirations 18, and blood pressure . O2 is 97% on room air. DISCHARGE DIET: GI soft. Advance as tolerated. DISCHARGE MEDICATIONS: As per Dr. Pacheco. Please see MAR. FOLLOWUP: The patient is being discharged home where she will need to follow up with Dr. Mccarty as well as Dr. Gilbert as well as Dr. Jarocho Gagnon in 7 to 10 days. Patient will need to take her full course of antibiotics as well as Culturelle. Watch for signs and symptoms of bleeding. Patient can return to the ED for any worsening of symptoms. Dictated by ARAVIND Resendiz for Mark Britton MD cc: MD Jarocho Heath MD
== END 2016-07-29 16:02 | disposition home or self-care (01) ==
LOC: ED 20:50 → SUATTDRO 23:54 → EDIPHOLD 23:54 → 3N 07-27 12:39
PROVIDERS: ATTEND Internal Medicine

== ENCOUNTER 2018-05-18 04:15 | Inpatient (IN) ==
[2018-05-18] MEDS ORDERED: MORPHINE IV ONE ×2 (04:57→05:57)
[2018-05-18] MEDS ORDERED: ZOFRAN IV ONE ×2 (04:57→05:57)
[2018-05-18] MEDS ORDERED: NS 1,000 ML IV ONE (04:58)
--- NOTE | 2018-05-18 05:04 | PROVIDER DOCUMENTATION ---
HPI-General Adult - General Chief Complaint: Abdominal Pain Stated Complaint: BODY PAIN/NAUSEA Time Seen by Provider: 05/18/18 04:36 Source: patient, family Allergies/Adverse Reactions: Patient Allergies Allergy/AdvReac Type Severity Reaction Status Date / Time Penicillins Allergy Intermediate RASH Verified 02/11/18 17:05 aspirin AdvReac Severe DIARRHEA Verified 02/11/18 17:05 ibuprofen AdvReac Severe Unknown Verified 02/12/18 15:22 Home Medications: Home Medication List Medication Instructions Recorded Confirmed Last Taken Type Metoprolol Succinate E.r. [Toprol 25 mg PO BID 05/28/13 02/11/18 02/03/18 History Xl] Ticagrelor [Brilinta] 90 mg PO BID 07/26/15 02/11/18 02/03/18 History Hydrocodone/APAP 7.5 mg/325 mg 1 each PO Q4H PRN PRN #20 tablet 08/13/1502/03/18 Rx [[place]-7.5] Losartan [Cozaar] 50 mg PO BID 07/26/16 02/11/18 02/03/18 History Metoclopramide [Reglan] 10 mg PO Q6HR 07/26/16 02/11/18 02/03/18 History Clonidine [Catapres] 0.1 mg PO Q8H PRN 03/13/17 02/11/18 02/03/18 History Mirtazapine 15 mg PO HS 03/13/17 02/11/18 02/03/18 History Megestrol Acetate [Megace] 80 mg PO BID 08/28/17 02/11/18 02/03/18 History Amlodipine [Norvasc] 5 mg PO QHS 02/04/18 02/11/18 02/03/18 History Eltrombopag Olamine [Promacta] 25 mg PO DIRECTED 02/04/18 02/11/18 Unknown History Ondansetron HCl [Zofran] 4 mg PO Q6HR 02/04/18 02/11/18 02/03/18 History Diphenhyramine/Al&mg Oh/Lido [Mbx 15 ml MISC AC + HS #300 bottle 02/09/18 Unknown Rx Solution] Furosemide [Lasix] 20 mg PO DAILY #14 tab 02/09/18 02/11/18 Unknown Rx Levofloxacin [Levaquin] 750 mg PO DAILY #10 tab 02/09/18 02/11/18 Unknown Rx Potassium Chloride E.r. [Klor-Con] 40 meq PO DAILY #14 tab 02/09/18 02/11/18 Unknown Rx Ondansetron [Ondansetron Odt] 4 mg PO Q6-8H PRN PRN #20 05/18/18 Unknown Rx tab.rapdis - History of Present Illness -Gen Adult Nature of Presenting Problems: Pt presents with ap, x 1 day, RLQ, pt has pmh of colon CA on chemo, typically gets pain in this location with chemo, in the past has had colitis, pt reports some nausea, pt denies f/c, ventura, cp, sob, cough, vomiting, diarrhea, pt has chronic back pain, pt is lying in bed in no acute distress. Location of Pain/Injury: reports: abdomen Pain Radiation: reports: no radiation Quality of Pain: reports: cramping, sharp Severity: reports: moderate Onset/Duration: reports: 24 hours ago Timing: reports: still present Context/Activities at Onset: reports: none Modifying Factors: improves with: nothing Associated Symptoms: reports: nausea Similar Symptoms Previously?: Yes Recently seen or treated by another doctor?: Yes Review of Systems - Adult - REVIEW OF SYSTEMS - ADULT Constitutional: reports: no symptoms reported Eyes: reports: no symptoms reported Ears, Nose, Mouth & Throat: reports: no symptoms reported Cardiovascular: reports: no symptoms reported Respiratory: reports: no symptoms reported Gastrointestinal: reports: see HPI Genitourinary: reports: no symptoms reported Musculoskeletal: reports: no symptoms reported Integumentary: reports: no symptoms reported Neurological: reports: no symptoms reported Psychiatric: reports: no symptoms reported Endocrine: reports: no symptoms reported Hematologic/Lymphatic: reports: no symptoms reported Allergic/Immunologic: reports: no symptoms reported All Other Systems: Reviewed and Negative Past History - Adult - PAST MEDICAL HISTORY-ADULT Review of Records: reports: Old Records Reviewed, Nursing Assessment Review, Medications Reviewed, Social history reviewed & non-contributory. Major Childhood Illnesses: reports: denies history Cardiovascular: reports: CAD, HTN, VT Respiratory: reports: COPD Gastrointestinal: reports: cancer (Colon) Obstetrical/Gynecological: reports: denies history Genitourinary: reports: denies history Musculoskeletal: reports: denies history Neurological: reports: denies history Endocrine/Immune: reports: thyroid disorder Other Conditions: reports: other cancer (skin) - PRIOR SURGERIES/PROCEDURES Surgical/Procedure History: reports: appendectomy, cholecystectomy, cardiac stent, hysterectomy, tonsillectomy - PRIOR HOSPITALIZATIONS Prior Hospitalizations: reports: none - IMMUNIZATION STATUS Childhood Immunizations: See Nurse Assessment Flu Vaccine: See Nurse Assessment - FAMILY HISTORY Family History: reviewed, not pertinent Physical Exam-General - PHYSICAL EXAM-ADULT Initial Vital Signs Reviewed: Yes - CONSTITUTIONAL General Appearance: appears well - EYES Eyes: PERRL/EOMI - HEAD, EARS, NOSE, MOUTH & THROAT HENMT: normocephalic/atraumatic - NECK Neck: full range of motion - RESPIRATORY Respiratory: no respiratory distress, no accessory muscle use - CARDIOVASCULAR Cardiovascular: regular rate, rhythm - GASTROINTESTINAL (ABDOMEN) Abdominal Exam: tenderness (RLQ) - LYMPHATIC Lymphatic: no adenopathy - MUSCULOSKELETAL Back Exam: normal inspection Extremity: normal range of motion - SKIN Integumentary: normal color - NEUROLOGIC Neurologic: grossly normal - PSYCHIATRIC Psych/Mental Status: normal mood/affect Progress - PLAN OF CARE/RESULTS Progress/Plan/Lab Results: Vital Signs - 8 hr 05/18/18 04:27 Temperature 97 F L Pulse Rate 62 Respiratory Rate 18 Blood Pressure 130/71 O2 Sat by Pulse Oximetry 95 Orders Category Date Time Status ED: Urine Bedside ORDERED Care 05/18/18 04:30 Active NPO Diet 05/18/18 04:[address] ABD/PELVIS W/IV CONT ONLY [CT] Stat Exams 05/18/18 04:57 Ordered CBC WITH DIFF [HEME] Stat Lab 05/18/18 04:30 Uncollected COMPREHENSIVE METABOLIC PANEL [CHEM] Stat Lab 05/18/18 04:30 Uncollected LACTATE, PLASMA [CHEM] Stat Lab 05/18/18 04:56 Uncollected LIPASE [CHEM] Stat Lab 05/18/18 04:30 Uncollected UA [URINALYSIS] [URINALYSIS] Stat Lab 05/18/18 04:56 Uncollected Morphine Med 05/18/18 04:57 Once 4 mg IV NOW ONE Ns 1000 ml IV Bolus X1 Med 05/18/18 04:58 Ordered 0.9% Sodium Chloride Inj [Ns] 1,000 ml IV 999 mls/hr Ondansetron [Zofran] Med 05/18/18 04:57 Once 8 mg IV NOW ONE Abd Pain/OB <20 weeks Stat Oth 05/18/18 04:30 Ordered Result Diagrams: 05/18/18 05:31 05/18/18 05:31 - REASSESSMENT Reassessment #1 Time Reassessed: 07:50 Status: unchanged (mild colitis assoc w/ chemotherapy dose, 2nd occurance. no leukcytosis. is able to retain po fluids. has norco and zofran at home. return as needed , rinku if unable to maintain hydration) - CT/MRI 1 CT Study: Abdomen, Pelvis Impression: Abnormal, See EMR Report (mild colitis, no lesion lumbar spine seen. ) Comparison with other Films: changes noted Departure - Departure Date of Disposition Decision: 05/18/18 Time of Disposition Decision: 07:49 DIAGNOSIS: Abdominal pain, Lumbar pain, Colitis Disposition: HOME 01 Certified Medical Emergency: Emergent Condition: Stable Additional Freetext Instructions: ED Follow Up Instructions: You have been treated by a care provider in the Emergency Department. These instructions are being provided to you so you can have an understanding of how to care for yourself upon discharge. Upon discharge from the Emergency Department, you are responsible for making arrangements for follow-up care by a physician of your choice. Take all prescribed medications as directed. Return to the Emergency Department immediately for any new or worsening symptoms. You may call the Physician Referral phone number at [phone] to obtain a list of Physicians who are taking new patients. Prescriptions: Ondansetron [Ondansetron Odt] 4 mg PO Q6-8H PRN PRN #20 tab.rapdis PRN Reason: Vomiting Referrals and Follow-Ups: Jarocho Gagnon MD [Primary Care Provider] - Discharge Education: Colitis - Critical Care Note This patient required my direct & personal management of CC.: No Attestation - Physician/ DEREK Attestation Patient care was provided by Advanced Practice Provider:: No The physician spent face to face time with patient:: Yes Advanced Practice Provider documentation review:: Supervising physician onsite and consulted in the evaluation and care of this patient. The physician did have a face to face encounter with the patient.
[2018-05-18 05:55] LABS: BASO# 0.01 X1000 (0.0-0.2); BASO% 0.2 % (0.0-0.8); EOS# 0.03 X1000 (0.0-0.7); EOS% 0.6 % (0.0-10.0); HEMATOCRIT 52.2 % (37.0-47.0); LYMPH# 1.05 X1000 (1.2-3.4); LYMPH% 20.2 % (20.5-51.1); MCH 32.9 PG (27-31); MCHC 32.6 g/dL (33-37); MCV 101.2 FL (81-99); MONO# 0.99 X1000 (0.11-0.59); MPV 10.9 FL (7.4-10.4); NEUT# 3.12 X1000 (1.4-6.5); PLT 127 X1000 (130-400); RBC 5.16 XMIL (4.2-5.4); RDW 15.7 % (11.5-14.5)
[2018-05-18 06:27] LABS: ALB/GLOB RATIO 2.1; ALBUMIN 3.9 g/dL (3.5-5.0); CALCIUM 9.7 mg/dL (8.8-10.2); CREATININE 0.9 mg/dL (0.5-0.9); POTASSIUM 4.3 mmol/L (3.5-5.1); TOTAL BILIRUBIN 2.21 mg/dL (0.20-1.00); TOTAL PROTEIN 5.8 g/dL (6.3-8.3)
--- NOTE | 2018-05-18 07:17 | Diag Imaging Result Doc PS360 ---
EXAM: CT ABD/PELVIS W/IV CONT ONLY 05/18/2018 HISTORY: colitis TECHNIQUE: This exam was performed using automated exposure control, adjustment of mA or kV according to patient size, and/or use of iterative reconstruction technique. COMMENT: There is ill-defined opacity in the right lower lobe on the first image. There is apparent atelectasis present in the right lower lobe as well as the middle lobe and the inferior portion of the lingula. Some of these opacities were apparently present on the previous study of 04/07/2018. The spleen has diminished in size since the previous examination measuring 8.9 cm in transverse dimension versus 10.2 cm previously. The aorta mesenteric and renal arteries are stable in appearance. There is dilatation of the biliary system both intra and extrahepatic ducts which is slightly worse than on the previous examination. The common hepatic duct measures almost 9 mm in diameter compared to 8 mm previously. The adrenal glands and kidneys are stable in appearance. There is fluid throughout the colon with dilatation. There is no evidence of mucosal thickening in the colon as far as can be determined, however there is some edema in the paracolic fat on the right side. This may indicate a low level colitis. The edema was not apparent on the previous study. The small bowel is not distended. The pancreas is stable in appearance. Pelvis: There is no evidence of free fluid. There has been hysterectomy. The urinary bladder is slightly distended. This has not really changed since the previous study. There is mild spinal stenosis at the L4-5 level. The regional skeleton is stable in appearance. IMPRESSION: Mild colitis on the right. No evidence of abscess or free fluid. Diminished splenic size. Slightly worsened biliary dilatation. Electronically signed by Martin Rodriguez 05/18/2018 7:15 AM
[2018-05-18 08:19] LABS: URINE SOURCE CLEAN CATCH
[2018-05-18 08:26] LABS: BILIRUBIN URINE NEGATIVE (NEGATIVE); BLOOD URINE NEGATIVE (NEGATIVE); COLOR YELLOW; GLUCOSE URINE NEGATIVE (NEGATIVE); KETONE URINE NEGATIVE (NEGATIVE); LEUKOCYTES URINE TRACE (NEGATIVE); NITRITE URINE NEGATIVE (NEGATIVE); PH URINE 5.5; PROTEIN URINE 50 mg/dL (NEGATIVE); SP GRAVITY URINE > 1.050; TURBIDITY URINE CLEAR (CLEAR); UROBILINOGEN URINE 4 mg/dL (NORMAL)
[2018-05-18 08:27] LABS: UR EPITHELIAL CELLS <10 /HPF (<10); URINE BACTERIA NEGATIVE /HPF; URINE RBC <10 /HPF (<10); URINE WBC <10 /HPF (<10)
[2018-05-18] MEDS ORDERED: DILAUDID IV ONE (09:01)
[2018-05-18] MEDS ORDERED: ZOFRAN IV PRN (09:19)
[2018-05-18] MEDS ORDERED: TYLENOL PO PRN (09:19)
--- NOTE | 2018-05-18 09:58 | Diag Imaging Result Doc PS360 ---
EXAM: CHEST-2 VIEWS 05/18/2018 HISTORY: low o2 sat TECHNIQUE: PA and lateral chest COMMENT: Compared to 02/12/2018 the interstitial opacity in the upper lung zones particularly in the right upper lobe have resolved. There is still atelectatic appearing opacity in the lateral right base and increased basilar interstitial markings. There may be a pleural effusion on the right which was not clearly present previously. IMPRESSION: Improved pulmonary edema and right basilar atelectasis. Small right pleural effusion. Electronically signed by Martin Rodriguez 05/18/2018 9:56 AM
--- NOTE | 2018-05-18 11:17 | HISTORY AND PHYSICAL ---
HISTORY OF PRESENT ILLNESS: She presents with really a 2-week history of increasing back pain, not eating well, and some low-grade nausea. She hurts in her right lower abdomen, her side, and her back. They did not report any fever or chills. No hematochezia. No diarrhea. Bowels are moving okay. Appetite was good up to 2 weeks ago. For a couple months, though, she has been having this back pain, and she has been evaluated by Dr. Gilbert. He sent her to see Dr. Jarocho Gagnon as well. They did not find any specific cause and felt it was probably musculoskeletal. Apparently, she was admitted before for symptoms like this, and at that time, she had pneumonia. She had colon cancer diagnosed in 2016. Unfortunately, at the same time, she had a myocardial infarction so she underwent angioplasty and stent placement and was put on anticoagulant, and they were forced to delay the treatment of her colon mass. Apparently, she has stage IV colon cancer, which is showing results, followed by Dr. Gilbert, and her chemotherapy was just yesterday. Because she has not been drinking and eating, Dr. Gilbert would like her in and we will give her some fluids and further evaluation. PAST MEDICAL HISTORY: 1. COPD. 2. Hypertension. 3. Hyperlipidemia. 4. Coronary artery disease status post stenting in 2016, status post myocardial infarction. 5. Colon cancer, as noted above. SURGICAL HISTORY: 1. Status post cholecystectomy. 2. Status post hysterectomy. 3. Left carotid endarterectomy. 4. Coronary artery stenting. 5. Partial colon resection, 2016. 6. Thyroid nodule excision. 7. Appendectomy. SOCIAL HISTORY: Former smoker. No tobacco, alcohol, or illicit drugs. FAMILY HISTORY: Positive for coronary artery disease, diabetes, stroke, and gastric cancer. REVIEW OF SYSTEMS: General: She has lost some weight. She has not been eating, drinking, specifically in this last 2 weeks. Before that, she had a good appetite was getting around doing well. She has remained in the chair and in bed and has been very uncomfortable these last 2 weeks. HEENT: They do not report any change in visual or hearing acuity. Neck: No neck pain or adenopathy. Respiratory: No increased work of breathing or dyspnea. Cardiovascular: No chest pain or tachy palpitation. Gastrointestinal/Genitourinary: No gross hematuria or dysuria. History of colon cancer as mentioned above and actively undergoing chemotherapy. She has right lower quadrant pain, as well as lower back pain below L4-L5. Musculoskeletal/Neurologic: Just the lower back pain, but has general weakness. Endocrinologic/Hematologic: No significant history. PHYSICAL EXAMINATION: VITAL SIGNS: In the emergency room, temperature 97 degrees, pulse 67, respirations 18, blood pressure 168/67. HEENT: Pupils are equal and round. LUNGS: Clear in all lung rojas. CARDIOVASCULAR: Regular rhythm and rate without murmur or S3. ABDOMEN: Soft. SKIN: Warm and dry. EXTREMITIES: She has small-vessel varicosities in her feet and lower extremities, which are symmetrical. DIAGNOSTIC STUDIES: White count 5200, hematocrit is 52, platelet count is 127,000. Sodium 140, potassium 4.3, chloride 105, BUN 29, creatinine 0.9, calcium 9.7, AST 19, ALT was 21, albumin 3.9. Urinalysis unremarkable. Abdominal and pelvic CT: Mild colitis on the right. No evidence of abscess or free fluid. Diminished splenic size. Slightly worsened biliary dilatation reported. ASSESSMENT AND PLAN: 1. Right-sided colitis. I am not sure if this is responsible for some of her back pain. She appears to be intravascularly volume depleted. We will give her some IV fluids, and I guess we will empirically treat the colitis. We will give her Levaquin and Flagyl. We will see how we do with her p.o. intake. We do need to check B12 and folate. We will check a magnesium level. We will check T4 and TSH and a.m. cortisol level. 2. History of coronary artery disease. Aware. No sign of active ischemia. 3. She has underlying chronic obstructive pulmonary disease (COPD), but no respiratory difficulty at this time. 4. Hypertension. We will watch her blood pressure. 5. Hypercholesterolemia. REVIEW OF MEDICATIONS: She is on amlodipine 5 mg a day. Catapres 0.1 mg q.8 h. p.r.n. She is getting Promacta 25 mg p.o.; I am not sure if she takes that every day or not. We will see what Dr. Gilbert wants to do. Lasix 20 mg a day, we will hold that. Hydrocodone 7.5 mg q.4 h. p.r.n. She was taking Levaquin p.o. We will put her on IV and continue the Cozaar 50 mg twice a day, Megace 80 mg b.i.d., Reglan 10 mg q.8 h., Toprol-XL 25 mg b.i.d., and mirtazapine 15 mg at bedtime. She is still on the Brilinta 90 mg b.i.d. and Klor-Con 40 mEq daily. cc: Vijay Roblero MD
[2018-05-18] MEDS: DUONEB (A & A) INH SCH ×4 (11:20→23:10)
[2018-05-18] MEDS: NS 1,000 ML IV SCH ×2 (11:35→22:43)
[2018-05-18] MEDS: FLAGYL 500 MG/NS 500 MG/100 ML IVPB IV SCH ×2 (11:37→17:46)
[2018-05-18] MEDS: LEVAQUIN 500 MG/D5W 500 MG/100 ML IVPB IV SCH (12:50)
[2018-05-18] MEDS: MORPHINE IV PRN ×3 (15:35→23:18)
[2018-05-18] MEDS: PULMICORT INH SCH (19:20)
[2018-05-18] MEDS ORDERED: PRILOSEC PO SCH (21:00)
[2018-05-19] MEDS: FLAGYL 500 MG/NS 500 MG/100 ML IVPB IV SCH ×3 (00:56→16:19)
[2018-05-19] MEDS: MORPHINE IV PRN ×5 (03:24→21:15)
[2018-05-19] MEDS: DUONEB (A & A) INH SCH ×6 (05:40→22:48)
[2018-05-19] MEDS: PULMICORT INH SCH ×2 (08:08→19:25)
[2018-05-19 08:16] LABS: INR 1.5; PROTIME 19.3 Seconds (11.0-16.0)
[2018-05-19 08:17] LABS: PTT 27.3 Seconds (22.3-41.8)
[2018-05-19 08:29] LABS: BASO# 0.01 X1000 (0.0-0.2); BASO% 0.4 % (0.0-0.8); EOS# 0.02 X1000 (0.0-0.7); EOS% 0.8 % (0.0-10.0); HEMATOCRIT 43.6 % (37.0-47.0); HEMOGLOBIN 14.5 g/dL (12.0-16.0); LYMPH# 0.44 X1000 (1.2-3.4); LYMPH% 17.3 % (20.5-51.1); MCH 33.6 PG (27-31); MCHC 33.3 g/dL (33-37); MCV 100.9 FL (81-99); MONO# 0.51 X1000 (0.11-0.59); NEUT# 1.57 X1000 (1.4-6.5); NEUT% 61.5 % (42.2-75.2); PLT 88 X1000 (130-400); RBC 4.32 XMIL (4.2-5.4); RDW 15.3 % (11.5-14.5); WBC 2.55 X1000 (4.8-10.8)
[2018-05-19] MEDS ORDERED: MORPHINE IV PRN (09:05)
[2018-05-19 09:20] LABS: AGAP 12; ALB/GLOB RATIO 1.9; ALKALINE PHOSPHATASE 77 U/L (32-104); BUN 21 mg/dL (8-22); CALCIUM 8.6 mg/dL (8.8-10.2); CHLORIDE 114 mmol/L (98-107); COSMO 293; CREATININE 0.7 mg/dL (0.5-0.9); ESTIMATED GFR > 60; GLUCOSE 163 mg/dL (70-104); GOT 16 U/L (10-30); GPT 17 U/L (10-36); MAGNESIUM 1.7 mg/dL (1.5-2.7); POTASSIUM 3.5 mmol/L (3.5-5.1); SODIUM 144 mmol/L (136-145); TCO2 18 mmol/L (25-35); TOTAL BILIRUBIN 1.67 mg/dL (0.20-1.00); TOTAL PROTEIN 4.6 g/dL (6.3-8.3)
[2018-05-19] MEDS: PROTONIX IV SCH ×2 (09:43→21:09)
[2018-05-19 09:51] LABS: FREE T4 1.67 ng/dL (0.93-1.70); TSH 1.34 uIUmL (0.27-4.20)
[2018-05-19] MEDS: NS 1,000 ML IV SCH (10:06)
[2018-05-19 12:02] LABS: URINE SOURCE CATH
[2018-05-19 12:07] LABS: BILIRUBIN URINE SMALL (NEGATIVE); BLOOD URINE NEGATIVE (NEGATIVE); COLOR ORANGE; GLUCOSE URINE 100 mg/dL (NEGATIVE); KETONE URINE NEGATIVE (NEGATIVE); LEUKOCYTES URINE NEGATIVE (NEGATIVE); NITRITE URINE NEGATIVE (NEGATIVE); PH URINE 5.5; PROTEIN URINE 70 mg/dL (NEGATIVE); SP GRAVITY URINE 1.045; TURBIDITY URINE CLEAR (CLEAR); UROBILINOGEN URINE 6 mg/dL (NORMAL)
[2018-05-19 12:08] LABS: UR EPITHELIAL CELLS <10 /HPF (<10); URINE BACTERIA NEGATIVE /HPF; URINE RBC <10 /HPF (<10); URINE WBC <10 /HPF (<10)
--- NOTE | 2018-05-19 13:01 | PROGRESS NOTE ---
DATE: 05/19/2018 SUBJECTIVE: The patient of Dr. Jarocho Gagnon had come in with a 2-week history of increasing back pain not eating well and right lower abdominal pain. She says she is about the same, and still quite a bit of nausea. OBJECTIVE: Vital Signs: Temperature 98.6 degrees, pulse 100, respirations 14, and blood pressure 148/46. Pupils are equal and round. Lungs: Clear in all lung rojas. Cardiovascular: Regular rhythm and rate without murmur or S3. Right lower quadrant still uncomfortable. DIAGNOSTIC STUDIES: Lab work from yesterday, white count 2550, hematocrit 43, and platelet count 88,000. Sodium 144, potassium 3.5, chloride 114, BUN 21, and creatinine 0.7. B12 was 308, folate was greater than 40. T4 is 1.67 and TSH was 1.34. Urinalysis unremarkable. Chest x-ray improved pulmonary edema, right basilar atelectasis, and small right pleural effusion. ASSESSMENT AND PLAN: 1. Right-sided colitis. Continue present antibiotics of Levaquin, Flagyl and IV fluids. Encourage some p.o. intake. 2. Coronary artery disease. No sign of active ischemia. 3. Underlying COPD, but no respiratory difficulty. 4. Hypertension. 5. Hypercholesterolemia. Continue her medications. cc: Vijay Roblero MD
[2018-05-19] MEDS: LEVAQUIN 500 MG/D5W 500 MG/100 ML IVPB IV SCH (13:50)
--- NOTE | 2018-05-19 14:40 | HEMO/ONC CONSULTATION ---
DATE: 05/19/2018 CHIEF COMPLAINT: We are being consulted for management of patient's metastatic cancer. HISTORY OF PRESENT ILLNESS: This woman is a pleasant, 82-year-old female that presented to the emergency department on 05/18/2018 complaining of increased amounts of abdominal pain. The patient had some mild nausea. Denies any fevers, chills, headache, chest pain, shortness of breath, cough, vomiting or diarrhea. The patient tried taking her pain medications at home and unable to control pain. The patient had a CT of the abdomen and pelvis that showed mild colitis, and was admitted at that time for further evaluation and management. Ms. Alcazar is well known to us in our clinic where she follows up for her KRAS mutated metastatic colon cancer. The patient underwent a right hemicolectomy on 07/30/2015 and was noted to have multiple positive lymph nodes that could not be resected. The patient was started on FOLFIRI and Avastin on 10/13/2014. 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 The patient received her last cycle of FOLFIRI 05/15/2018. The patient did not have Avastin due to increased amount of protein in the urine. The patient's cancer has been very well under control. Last CT scan showed no evidence of disease at that time. PAST MEDICAL HISTORY: Colon cancer, coronary artery disease, status post cardiac stents, COPD, hypertension, hyperlipidemia. PAST SURGICAL HISTORY: Cholecystectomy, hysterectomy, left carotid endarterectomy, coronary stent placement, partial colon resection, thyroid nodule excision, appendectomy, and Port-A-Cath placement. SOCIAL HISTORY: Former smoker. No current tobacco, alcohol, or illicit drug use. FAMILY HISTORY: Coronary artery disease, diabetes, stroke, and colon cancer. ALLERGIES: She is allergic to penicillin, aspirin, ibuprofen. HOME MEDICATIONS: Norvasc, Catapres, Magic mouthwash Promacta, Lasix, Clear 7.5 , Cozaar, Megace, Reglan, Toprol-XL, mirtazapine, Zofran, Klor-Con and Brilinta. REVIEW OF SYSTEMS: Negative as per HPI. PHYSICAL EXAM: Vital Signs: Temperature of 98.6 degrees heart rate 100, respiratory rate 15, blood pressure 107/92, satting 95% on room air. General: Patient is awake, lying in bed, no acute distress noted. HEENT: Anicteric. Pupils PERRLA and mucous membranes moist. Neck: Trachea midline. No JVD. Lymph node survey: No palpable lymphadenopathy. Chest: Bilateral breath sounds. Clear to auscultation. Cardiovascular: S1, S2. Regular rate and rhythm. Abdomen: Soft, slightly tender to right lower quadrant. Bowel sounds present all 4 quadrants. Skin: Warm, dry, and intact. Neurologic: Alert and oriented x3. No focal deficits noted. LABORATORY DATA: White count 5.20, hemoglobin 7.3, hematocrit 32.2, platelets are 127. Potassium 4.3, BUN 29, creatinine 0.9. RADIOLOGY REPORTS: Abdomen and pelvis CT shows mild colitis on the right, no evidence of abscess or free fluid, diminished splenic size and slightly worsened biliary dilation. ASSESSMENT AND PLAN: 1. 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 Sedation has been very well under control at this time. The patient last received her treatment of FOLFIRI at 70% of the dose. The patient did not receive any Avastin due to proteinuria. Disease looks to have been very well controlled at this time. 2. Colitis: The patient will continue on intravenous pain medication as ordered. Continue intravenous fluids as well. Continue recommendations per primary medical team. 3. Idiopathic thrombocytopenic purpura. Platelet counts are stable at 129,000. The patient will continue Promacta 25 mg once every 7 days. Continue to monitor closely. 4. History of coronary artery disease: The patient will continue on Brilinta as instructed. 5. Hypertension. 6. Hypercholesterolemia. 7. Deep venous thrombosis prophylaxis. Patient on Brilinta. Patient will continue to get out of bed as much as possible. Dictated by ARAVIND Solis for Chele Gilbert MD Patient seen and examined. Admitted with colitis and severe pain. Continue antibiotics for colitis and pain management. Has a history ITP. Continue promacta. Chele Gilbert MD. cc: ARAVIND Solis MD [facility]
[2018-05-20] MEDS: FLAGYL 500 MG/NS 500 MG/100 ML IVPB IV SCH ×3 (01:29→17:31)
[2018-05-20] MEDS: NS 1,000 ML IV SCH ×2 (03:36→13:04)
[2018-05-20] MEDS: DUONEB (A & A) INH SCH ×6 (04:27→23:00)
[2018-05-20] MEDS: MORPHINE IV PRN ×7 (08:01→21:59)
[2018-05-20] MEDS: PULMICORT INH SCH ×2 (08:03→19:53)
[2018-05-20] MEDS: LEVAQUIN 500 MG/D5W 500 MG/100 ML IVPB IV SCH (08:14)
[2018-05-20] MEDS: SODIUM CHLORIDE 0.9% INJ SCH ×2 (08:14→20:00)
[2018-05-20] MEDS: PROTONIX IV SCH ×2 (08:14→20:00)
--- NOTE | 2018-05-20 11:52 | PROGRESS NOTE ---
DATE: 05/20/2018 SUBJECTIVE: Ms. Alcazar says she is a little more comfortable than yesterday. She is breathing comfortably. OBJECTIVE: Vital Signs: She remains afebrile with temperature 98.0 degrees, pulse 100, respirations 18, blood pressure 150/83 Eyes: Pupils are equal and round. Lungs: Clear in all lung rojas. Cardiovascular exam: Regular rhythm and rate without murmur or S3. Abdomen: Soft. Skin: Warm and dry. : Urine output is 2000 mL. PROBLEM LIST: 1. Right-sided colitis. Continue Levaquin and Flagyl. Family was there. We will make sure we keep rotating her every 2 hours. 2. History of coronary artery disease, recent I think stent placement. No left ventricular dysfunction. No sign of active ischemia. 3. Chronic obstructive pulmonary disease. No respiratory difficulty. 4. Hypertension. 5. Hypercholesterolemia. LABS: Her recent lab looks good. White count 2550, hematocrit is 43, platelet count is 88,000. Sodium 144, potassium 3.5, chloride 114. BUN 21 and creatinine 0.7. Her white count is low. Seems to be clinically doing better. We are going to need to try and get her up in a chair and rotate her in the bed and see what we can do. ASSESSMENT AND PLAN: 1. KRAS mutated stage IV moderately differentiated metastatic colon cancer. She has tolerated her treatments very well, and last received treatment of FOLFIRI 70% dose. The patient did not receive any Avastin due to proteinuria. Disease has been well controlled up to this point. 2. Colitis. Continue her antibiotics. 3. Idiopathic thrombocytopenic purpura. Platelet counts are 129,000. The patient will continue Promacta 25 mg once every 7 days. 4. History of coronary artery disease. 5. Hypertension. 6. Hypercholesterolemia. Abdominal and pelvic CT showed mild colitis. Continue present plan to let her sleep today and rest. I think tomorrow we need to get her up in a chair and see if we can get her a little stronger. Her volume status looks good. She is getting fluids again at 100 mL an hour; continue those. cc: Vijay Roblero MD
[2018-05-21] MEDS: MORPHINE IV PRN ×9 (00:03→22:28)
[2018-05-21] MEDS: FLAGYL 500 MG/NS 500 MG/100 ML IVPB IV SCH ×3 (00:05→18:18)
[2018-05-21] MEDS: NS 1,000 ML IV SCH ×2 (03:42→15:57)
[2018-05-21] MEDS: DUONEB (A & A) INH SCH ×5 (03:51→23:19)
[2018-05-21] MEDS: PULMICORT INH SCH ×2 (08:06→19:40)
[2018-05-21] MEDS: LEVAQUIN 500 MG/D5W 500 MG/100 ML IVPB IV SCH (10:26)
[2018-05-21] MEDS: PROTONIX IV SCH ×2 (10:27→20:26)
[2018-05-21] MEDS: SODIUM CHLORIDE 0.9% INJ SCH (10:27)
--- NOTE | 2018-05-21 10:35 | PROGRESS NOTE ---
DATE: 05/21/2018 SUBJECTIVE: Ms. Alcazar had a good night sleep mostly thru the night. She has not eaten much. Family has reported that she does not seem to have much will. She has told her family goodbye, and so they are worried about how much incentive she is going to have for rehab. OBJECTIVE: Temperature s 99.8 degrees, pulse 99, respirations 18, blood pressure 182/77. Pupils are equal and round. Lungs are clear in all lung rojas anterolateral. Cardiovascular regular rhythm and rate without murmur or S3. Abdomen is soft. Skin is warm and dry. Urine output 1500 mL. ASSESSMENT AND PLAN: 1. She has stage IV moderately differentiated metastatic colon cancer. She has tolerated her treatments well. She is on FOLFIRI 70% dose. She did not receive any Avastin because of her proteinuria. 2. Colitis. We will continue her present antibiotics. 3. Idiopathic thrombocytopenic purpura. Platelet count is 129,000 so her platelet count seems to be doing well. It was 127,000, today it is 88,000. 4. History of coronary artery disease. 5. Hypertension. 6. Hypercholesterolemia. 7. Abdominal and pelvic CT showed colitis. Continue present antibiotics. 8. Family is discussing plans. We will continue the Flagyl. No Levaquin. Normal saline at 100 mL an hour. cc: Vijay Roblero MD
[2018-05-21] MEDS: LOVENOX SUBQ SCH (13:09)
--- NOTE | 2018-05-21 17:31 | HEMO/ONC PROGRESS NOTE ---
DATE: 05/21/2018 SUBJECTIVE: Patient is resting in bed comfortably. Family is at bedside. Family reports that if asked patient reports that her pain is controlled. However, she reveals significant discomfort upon moving her. They also report that she had been depressed. She has been taking morphine every 2 hours. PHYSICAL EXAMINATION: General: Patient is in no acute distress at the current time. She is asleep. Vital Signs: Temperature 99.8 degrees, pulse 100, blood pressure 193/125. HEENT: Eyes: EOMI. PERRLA. Anicteric. Mucous membranes appear mildly moist. Cardiac: Regular rate and rhythm. Normal S1, S2. Chest: Clear to auscultation. Abdomen: Soft. Significant tenderness is noted in the right lower quadrant. No rebound is noted. Extremities: No significant edema. LABS: None today. ASSESSMENT AND PLAN: 1. Metastatic colon cancer: Last scans revealed good control of disease. Patient will be off chemotherapy until she recovers. 2. Colitis and abdominal pain: She is on Levaquin and Flagyl. Still continues to have significant pain. Increase morphine to 8 mg q.12 hours. 3. Deep vein thrombosis prophylaxis: Start Lovenox. 4. History of idiopathic thrombocytopenic purpura: Continue Promacta as advised. Check CBC tomorrow morning. 5. Elevated blood pressure: Per Dr. Roblero. Thought to be related to her pain. cc: Chele Gilbert MD
[2018-05-22] MEDS: MORPHINE IV PRN ×12 (00:35→22:30)
[2018-05-22] MEDS: NS 1,000 ML IV SCH (02:24)
[2018-05-22] MEDS: FLAGYL 500 MG/NS 500 MG/100 ML IVPB IV SCH ×2 (02:25→09:02)
[2018-05-22] MEDS: DUONEB (A & A) INH SCH ×6 (03:18→23:30)
[2018-05-22 06:44] LABS: BASO# 0.03 X1000 (0.0-0.2); BASO% 0.7 % (0.0-0.8); EOS# 0.14 X1000 (0.0-0.7); EOS% 3.3 % (0.0-10.0); HEMOGLOBIN 13.9 g/dL (12.0-16.0); IMM GRAN# 0.04 X1000 (0.0-0.04); LYMPH# 0.79 X1000 (1.2-3.4); LYMPH% 18.9 % (20.5-51.1); MCH 33.8 PG (27-31); MCHC 32.3 g/dL (33-37); MCV 104.6 FL (81-99); MONO# 0.83 X1000 (0.11-0.59); MONO% 19.9 % (1.7-9.3); MPV 10.7 FL (7.4-10.4); NEUT# 2.35 X1000 (1.4-6.5); NEUT% 56.2 % (42.2-75.2); PLT 78 X1000 (130-400); RBC 4.11 XMIL (4.2-5.4); RDW 15.2 % (11.5-14.5); WBC 4.18 X1000 (4.8-10.8)
[2018-05-22] MEDS: PULMICORT INH SCH ×2 (07:57→20:06)
[2018-05-22] MEDS: PROTONIX IV SCH (09:05)
[2018-05-22] MEDS: LEVAQUIN 500 MG/D5W 500 MG/100 ML IVPB IV SCH (11:50)
[2018-05-22] MEDS: LOVENOX SUBQ SCH (13:07)
--- NOTE | 2018-05-22 14:05 | HEMO/ONC PROGRESS NOTE ---
DATE: 05/22/2018 SUBJECTIVE: The patient lying in bed, not really responding to any verbal stimuli. Family at bedside. The patient still complains of screams with pain when she is moved, but in between movements, she is resting comfortably. OBJECTIVE: Vital Signs: Temperature 99.1 degrees, heart rate 101, respiratory rate 16, blood pressure 137/72, saturating 97% on nasal cannula. General: Patient is awake, lying in bed, not responding. HEENT: Anicteric. mucous membranes dry. Cardiovascular: Increased rate and rhythm. Normal S1, S2. Chest: Bilateral breath sounds clear to auscultation. Abdomen: Soft. Bowel sounds present in all 4 quadrants. Neurological: Awake. No response to stimuli. LABORATORY DATA: White blood cell count 4.18, hemoglobin 13.9, hematocrit 43.0 , platelets are 78,000. ASSESSMENT AND PLAN: 1. Metastatic colon cancer: The patient off chemotherapy until she recovers at this time. The patient has very poor prognosis at this time. Patient's family decided to go with hospice. 2. Colitis and abdominal pain: The patient has been on Levaquin and Flagyl. The patient continues to have increased amounts of pain. Continue with morphine 8 mg every 12 hours to control pain. 3. Deep venous thrombosis (DVT) prophylaxis: Continue Lovenox. 4. History of idiopathic thrombocytopenia purpura (ITP): Continue Promacta. Dictated by ARAVIND Solis for Chele Gilbert MD Patient seen and examined. Patients condition continues to worsen. Patient has voiced to family that she does not want to active therapy. She wants to be kept comfortable. I had a lengthy discussion and answered questions. We will get hospice involved at this time. Discontinue labs and all medications except those that are needed for comfort measures. Chele Gilbert M.D. cc: ARAVIND Solis MD [facility]
--- NOTE | 2018-05-22 17:19 | PROGRESS NOTE ---
DATE: 05/22/2018 SUBJECTIVE: Ms. Alcazar is really not doing very well. She really wants just comfort measures. She had the family in to talk to Dr. Gilbert, and they have agreed to try and change her to hospice care. She is not as responsive and really just expressed her desire to quit treatment. OBJECTIVE: Vital signs: Temperature 99.1 degrees, pulse 103, respirations 14, blood pressure 137/72. HEENT: Pupils are equal. Neck: No distended neck veins. Respiratory: Lungs are clear in all lung rojas. She is mouth-breathing. Cardiovascular exam: Regular rhythm and rate. Abdomen: Soft. Skin: Warm and dry. LABORATORY DATA: Reviewed her lab from yesterday. Hematocrit was 43, hemoglobin 13. ASSESSMENT AND PLAN: 1. Metastatic colon cancer. The patient off chemotherapy doubt she recovers, poor prognosis. Family did decide to go with hospice and go for comfort care. 2. Colitis and abdominal pain. Patient has been on Levaquin and Flagyl. Continues to have bouts of pain. She gets morphine about 8 mg every 12 hours. 3. Deep venous thrombosis on Lovenox for prophylaxis. 4. History of idiopathic thrombocytopenic purpura. She is to continue Promacta. She will go to comfort level and go into hospice. cc: Vijay Roblero MD
[2018-05-22] MEDS: ATIVAN IV PRN (23:45)
[2018-05-23] MEDS: MORPHINE IV PRN ×10 (00:33→22:16)
[2018-05-23] MEDS: DUONEB (A & A) INH SCH ×6 (03:27→23:20)
[2018-05-23] MEDS: ATIVAN IV PRN ×5 (04:55→22:16)
[2018-05-23] MEDS: PULMICORT INH SCH ×2 (07:49→20:24)
--- NOTE | 2018-05-23 17:59 | PROGRESS NOTE ---
DATE: 05/23/2018 SUBJECTIVE: The patient is resting comfortably in bed. Her family is present at the bedside. No acute events noted overnight. OBJECTIVE: Vital Signs: Temperature 99 degrees, blood pressure 149/56, heart rate 111, respirations 20, O2 saturation is 89% on 2 L nasal cannula. General: This is a chronically ill- appearing, elderly female lying in bed, in no acute distress. Heart: S1, S2 normal. Tachycardic. Lungs: Coarse breath sounds bilaterally. Abdomen: Positive bowel sounds. Soft, nontender, nondistended. Extremities: No edema. No cyanosis. Neurologic: The patient is comatose. ASSESSMENT: 1. Metastatic colon cancer. 2. Colitis. PLAN: Continue with comfort measures. cc: Edita Cabrera MD
[2018-05-23 19:41] VITALS: BP 128/78
[2018-05-23] MEDS ORDERED: ATIVAN IV PRN (23:52)
[2018-05-23] MEDS ORDERED: ATROPINE 1 % OPHTH SOLN SL PRN (23:52)
[2018-05-24] MEDS: MORPHINE IV PRN ×2 (00:06→02:25)
--- NOTE | 2018-05-24 06:44 | DISCHARGE SUMMARY ---
ADMISSION DATE: 05/18/2018 DISCHARGE DATE: 05/24/2018 DISCHARGE DIAGNOSES: 1. Metastatic colon cancer. 2. Colitis. 3. Hypertension. 4. Coronary artery disease. CONSULTATIONS: Oncology consultation with Dr. Gilbert. HOSPITAL COURSE: Ms. Alcazar is an 82-year-old female with a history of metastatic colon cancer who presented to the ER with abdominal pain and some nausea. In the ER, a CT of the abdomen and pelvis was done that revealed colitis on the right. The patient was started on IV antibiotics. However, it was noted by family that the patient was not eating at all, and her overall clinical condition was deteriorating. Dr. Gilbert was consulted, and ultimately they had a discussion, and the family decided to make the patient a DNR level 1 with comfort measures only. On 05/24/2018, the patient was pronounced at 3:10 a.m. The patient's family was present at the bedside. cc: Edita Cbarera MD MTDD
== END 2018-05-24 03:10 | disposition expired | DRG 372 ==
LOC: ED 04:15 → EDIPHOLD 11:30 → SUATTDRO 11:30 → 3N 15:13
PROVIDERS: ATTEND Internal Medicine
CPT/HCPCS: 71020; 71046; 74177; 80053; 81001; 82533; 82607; 82746; 83605; 83690; 83735; 84439; 84443; 85025; 85610; 85730; 94640; 94761; 94799; 96361; 96365; 96367; 96375; 96376; 99285; A9270; C9113; J1170; J1650; J1956; J2060; J2270; J2405; J7030; Q9967; S0030; S0164